=== PATIENT | male | born 2000 | race Native Hawaiian/Other Pacific Islander ===

== ENCOUNTER 2018-02-13 13:27 | Emergency (ER) | payer OTHER ==
[2018-02-13] MEDS: IBUPROFEN 600 MG TAB PO (13:44)
== END 2018-02-13 14:19 | disposition home or self-care (01) ==
LOC: M ED 13:27
DX: S83.421A Sprain of lateral collateral ligament of right knee, initial encounter (principal)
CPT/HCPCS: 73564

== ENCOUNTER 2018-10-03 19:27 | Emergency (ER) | payer OTHER ==
[~2018-10-03] VITALS: Ht 188 cm; Wt 90.9 kg
[~2018-10-03 19:27] MED LIST: IBUP-1022 PO
[2018-10-03] MEDS ORDERED: MEDR4PAK PO (20:54)
[2018-10-03] MEDS ORDERED: KETOROLAC 60 MG/2 ML VIAL (J1885) IM ONE (21:00)
[2018-10-03 21:23] VITALS: BP 115/70
== END 2018-10-03 21:25 | disposition home or self-care (01) ==
LOC: M ED 19:27
DX: M54.42 Lumbago with sciatica, left side (principal)
CPT/HCPCS: 96372; 99283; J1885